=== PATIENT | female | born 1980 | race African-American/Black ===

== ENCOUNTER 2016-06-27 08:35 | Emergency (ER) | payer OTHER ==
--- NOTE | 2016-06-27 11:54 | ER Document Report ---
ED Fever - General Chief Complaint: Pain All Over Stated Complaint: BODY ACHES Mode of Arrival: Ambulatory Information source: Patient Notes: 35-year-old female presents to the emergency department complaining of cough, congestion, generalized body aches, and intermittent fever since yesterday. Reports decreased appetite but good oral fluid intake and urine output. Denies shortness of breath, difficulty breathing or swallowing, dysuria, or nausea/ vomiting. States her son currently has similar symptoms. TRAVEL OUTSIDE OF THE [place] IN LAST 30 DAYS: No - HPI Onset: Yesterday Onset/Duration: Intermittent, Persistent Quality of pain: Achy Severity: Mild Pain Level: 1 Associated symptoms: Body/muscle aches, Nonproductive cough, Fever Similar symptoms previously: Yes Recently seen / treated by doctor: No - Related Data Allergies/Adverse Reactions: No Known Allergies Allergy (Verified 06/27/16 08:51) Past Medical History - General Information source: Patient - Social History Smoking Status: Never Smoker Chew tobacco use (# tins/day): No Frequency of alcohol use: None Drug Abuse: None Lives with: Family Family History: Reviewed & Not Pertinent Patient has suicidal ideation: No Patient has homicidal ideation: No - Past Medical History Cardiac Medical History: Reports: Hx DVT Renal/ Medical History: Denies: Hx Peritoneal Dialysis Past Surgical History: Reports: Hx Abdominal Surgery - Gastric Sleeve, Hx Cholecystectomy - Immunizations Hx Diphtheria, Pertussis, Tetanus Vaccination: Yes Review of Systems - Review of Systems Constitutional: See HPI EENT: See HPI Cardiovascular: No symptoms reported Respiratory: See HPI Gastrointestinal: No symptoms reported Genitourinary: No symptoms reported Female Genitourinary: No symptoms reported Musculoskeletal: No symptoms reported Skin: No symptoms reported Hematologic/Lymphatic: No symptoms reported Neurological/Psychological: No symptoms reported -: Yes All other systems reviewed and negative Physical Exam - Vital signs Vitals: Temp Pulse Resp BP Pulse Ox 98.2 F 71 16 142/94 H 96 06/27/16 08:44 06/27/16 08:44 06/27/16 08:44 06/27/16 08:44 06/27/16 08:44 Interpretation: Normal - General General appearance: Appears well, Alert In distress: None - HEENT Head: Normocephalic, Atraumatic Eyes: Normal Conjunctiva: Normal Eyelashes: Normal Pupils: PERRL Ears: Normal External canal: Normal Tympanic membrane: Normal Sinus: Normal Nasal: Normal Mouth/Lips: Normal Mucous membranes: Normal, Moist Pharynx: Normal. No: Blood in hypopharynx, Erythema, Exudate, Peritonsillar abscess, Post nasal drainage, Retropharyngeal abscess, Tonsillar hypertrophy, Uvular edema, Potential airway comprom., Other Neck: Normal. No: Anterior cervical chain, Posterior cervical chain, Lymphadenopathy, Meningismus, Subcutaneous emphysema - Respiratory Respiratory status: No respiratory distress Chest status: Nontender Breath sounds: Normal - CTAB, Nonproductive cough Chest palpation: Normal - Cardiovascular Rhythm: Regular Heart sounds: Normal auscultation Murmur: No Pulses: Normal: Radial Normal capillary refill: Yes - Abdominal Inspection: Normal Distension: No distension Bowel sounds: Normal Tenderness: Nontender Organomegaly: No organomegaly - Back Back: Normal, Nontender - Extremities General upper extremity: Normal inspection, Nontender, Normal color, Normal ROM , Normal strength, Normal temperature. No: Tender, Edema General lower extremity: Normal inspection, Nontender, Normal color, Normal ROM , Normal strength, Normal temperature, Normal weight bearing. No: Tender, Edema - Neurological Neuro grossly intact: Yes Cognition: Normal Orientation: AAOx4 Alexy Coma Scale Eye Opening: Spontaneous Igo Coma Scale Verbal: Oriented Alexy Coma Scale Motor: Obeys Commands Igo Coma Scale Total: 15 Speech: Normal Motor strength normal: LUE, RUE, LLE, RLE Sensory: Normal - Psychological Associated symptoms: Normal affect, Normal mood - Skin Skin Temperature: Warm Skin Moisture: Dry Skin Color: Normal Course - Re-evaluation Re-evalutation: 06/27/16 11:52 Patient hemodynamically stable, in no distress, afebrile, nontoxic, and appears well-hydrated. Patient's influenza a/b were negative however her son who is in the ED with her was positive for influenza A. Will prescribe course of Tamiflu due to onset of symptoms and exposure to influenza A. Patient herself discharge and agrees with home care, follow-up with PCP, and ED return precautions. - Vital Signs Vital signs: Temp Pulse Resp BP Pulse Ox 98 F 77 16 138/88 H 98 06/27/16 11:40 06/27/16 11:40 06/27/16 11:40 06/27/16 11:40 06/27/16 11:40 Discharge - Discharge Clinical Impression: Exposure to influenza Condition: Stable Disposition: HOME, SELF-CARE Instructions: Influenza ([facility]), Fever ([facility]), Acetaminophen, Use of Over-The- Counter Ibuprofen ([facility]) Additional Instructions: Drink plenty of fluids, at least 2-3 liters of water per day. Follow-up with your primary care provider this week. Return to the emergency department for any worsening symptoms or concerns. Prescriptions: Oseltamivir Phosphate [Tamiflu 75 mg Capsule] 75 mg PO BID 5 Days Forms: Elevated Blood Pressure, Return to Work
[2016-06-27 12:08] VITALS: BP 138/88
== END 2016-06-27 12:08 | disposition home or self-care (01) ==
LOC: ER 08:35
DX: Z20.828 Contact with and (suspected) exposure to other viral communicable diseases (principal); R05 Cough; R50.9 Fever, unspecified; R52 Pain, unspecified; R63.0 Anorexia; Z98.84 Bariatric surgery status; Z86.718 Personal history of other venous thrombosis and embolism; Z90.49 Acquired absence of other specified parts of digestive tract
CPT/HCPCS: 87804; 99283